=== PATIENT | male | born 1960 | race Caucasian/White ===

== ENCOUNTER → 2017-01-16 | Outpatient (CLI) | payer BC ==
--- NOTE | 2017-01-16 11:47 | CR ---
EXAMINATION: Two-view chest (PA and Lateral views). HISTORY: Shortness of breath. FINDINGS: The trachea is midline. The cardiomediastinal silhouette is within normal limits. No pulmonary infil trates, effusions or pneumothorax. There is a mild interstitial prominence. Osseous structures appear unremarkable. IMPRESSION: No acute cardiopulmonary process.
[2017-01-16 11:51] LABS: CHLORIDE,CL 107 mmol/L (98-110); SODIUM,NA 140 mmol/L (136-146)
== END ==
LOC: MW.CHIM 11:07
PROVIDERS: ATTEND Internal Medicine
DX: R06.02 Shortness of breath (principal); R07.89 Other chest pain
CPT/HCPCS: 36415; 71020; 71020-26; 80053; 80061; 85025

== ENCOUNTER → 2017-01-30 | Outpatient (CLI) | payer OTHER, BC ==
--- NOTE | 2017-01-30 13:26 | NM ---
EXAMINATION: Nuclear medicine myocardial perfusion study with exercise stress test. HISTORY: Chest pain. PROCEDURE: Patient exercised according to Andrea protocol for 10 minutes and 36 seconds and achieved maximal hea rt rate of 163 beats per minute. Adequate exercise. Following intravenous administration of 27.3 mCi of technetium 99m sestamibi, stress SPECT images i ncluding gating imaging was performed. FINDINGS: Stress myocardial SPECT images demonstrates minimally decreased perfusion along the inferior wall to wards the base, most likely diaphragmatic attenuation. Review of gated images demonstrates normal wall motion, contractility and wall thickening. The left ventricular ejection fraction is 50 %. The left ventricular chamber size is normal. IMPRESSION: 1. Probable mild diaphragmatic attenuation along the inferior wall without definite evidence of isch emia. 2. Normal ventricular chamber size and function with borderline ejection fraction of 50 %.
--- NOTE | 2017-01-30 19:37 | PCM.PRNOTE ---
- Free Text/Narrative Note: Exercise MIBI Indication CP Sestamibi Tc99 25 MCi was given at the peak HR Patient was brought to the stress test lab in postabsorptive state verbal and paper consent was obtained from patient Vital signs at resting state blood pressure of 118/82 with a heart rate of 77 EKG shows sinus rhythm no ST changes no Q waves Maximal heart rate of 163 and target heart rate is 138 Patient reached the target heart rate, completed stage IV Andrea protocol Peak blood pressure is 144/84 Total exercise time of 10.[address] changes with a peak heart rate no arrhythmia METS 12.8 No symptom of chest pain or feeling dizzy Impression Normal hemodynamics, normal chronotropic, excellent exercise capacity, negative for ischemia on EKG Plan Nuclear portion pending
== END ==
LOC: MW.NM 06:09
PROVIDERS: ATTEND Internal Medicine
DX: R07.89 Other chest pain (principal)
CPT/HCPCS: 78451; 93017; A9500

== ENCOUNTER → 2017-02-01 | Outpatient (CLI) | payer OTHER, BC ==
--- NOTE | 2017-02-01 15:05 | NM ---
EXAMINATION: Resting myocardial perfusion study HISTORY: Chest pain COMPARISON: Stress from 01/30/2017 TECHNIQUE: Additional images were obtained at rest following the administration of 27.5 mCi of techn etium 99m labeled sestamibi. FINDINGS/IMPRESSION: The previously demonstrated mildly decreased perfusion along the inferior wall persists at rest. This likely represents diaphragmatic attenuation without definite evidence for charles cardial ischemia. Ejection fraction and wall motion appears unchanged with an EF of 52%. The TID is 1.2.
== END ==
LOC: MW.NM 08:54
PROVIDERS: ATTEND Internal Medicine
DX: R07.89 Other chest pain (principal)
CPT/HCPCS: 78451; 78451-26; A9500